=== PATIENT | female | born 1955 | race Caucasian/White ===

== ENCOUNTER → 2016-10-30 | Outpatient (CLI) | payer BC ==
[~2016-10-30] MED LIST: LORA10CA2 PO; OMEP10CA2 PO; TAMO20TA47 PO; VITAMIN PO
--- NOTE | 2016-10-30 13:45 | MAMMOGRAPHY REPORT ---
BILATERAL DIGITAL DIAGNOSTIC MAMMOGRAM TOMOSYNTHESIS WITH CAD: 10/30/2016 CLINICAL HISTORY: History of left breast cancer status post lumpectomy and radiation therapy, who pr esents for her first follow-up after treatment. She reports no current complaints. TECHNIQUE: Breast tomosynthesis in addition to standard 2D mammography was performed. Current study was also evaluated with a Computer Aided Detection (CAD) system. Bilateral CC and MLO 2-D and esteban synthesis images and spot magnification left CC and ML views were obtained. COMPARISON: Comparison is made to exams dated: 03/06/2016 mammogram, 03/06/2016 ultrasound biopsy, mammogram, and 12/31/2015 mammogram - [facility]. BREAST COMPOSITION: The tissue of both breasts is heterogeneously dense, which may obscure small ma sses. FINDINGS: There are new expected postsurgical changes in the left medial breast at approximately 9: 00 from prior lumpectomy, including new density, architectural distortion, and surgical clips at the lumpectomy bed. Minimal diffuse left breast skin thickening is noted, likely a sequela of radiatio n therapy. Spot magnification views of the lumpectomy bed demonstrate no suspicious masses or clust ers of microcalcifications. The remainder of both breasts are stable compared to prior exams, without suspicious masses, calcifi cations, or areas of architectural distortion noted. IMPRESSION: ACR-BI-RADS CATEGORY 3: PROBABLY BENIGN Expected post treatment changes in the left breast, without mammographic evidence of malignancy in e ither breast. Recommend follow-up diagnostic tomosynthesis mammograms of the left breast in 6 month s to reevaluate the left breast postsurgical changes. The patient has been verbally notified of the results. Approximately 10% of breast cancers are not detected with mammography. A negative mammographic repor t should not delay biopsy if a clinically suggestive mass is present. Tracy Payton M.D. ah/:10/30/2016 10:20:02 Pyrotechnic Mixer: Elinor IRIZARRY(Mei)(M), [facility] letter sent: Personal History 3 BI-RADS Code: ACR-BI-RADS Category 3: Probably Benign
== END | disposition home or self-care (01) ==
LOC: C.MAMM 09:38
PROVIDERS: ATTEND Surgery
DX: Z98.890 Other specified postprocedural states (principal); Z85.3 Personal history of malignant neoplasm of breast; Z08 Encounter for follow-up examination after completed treatment for malignant neoplasm; Z92.3 Personal history of irradiation

== ENCOUNTER → 2016-11-24 | Outpatient (CLI) | payer BC | END | disposition home or self-care (01) | LOC: C.MAMM 12:29 | PROVIDERS: ATTEND Family Medicine | DX: M85.88 Other specified disorders of bone density and structure, other site (principal); M81.0 Age-related osteoporosis without current pathological fracture ==

== ENCOUNTER → 2017-02-06 | Outpatient (CLI) | payer BC ==
[~2017-02-06] MED LIST changes: -TAMO20TA47 PO; +TAMO20TA9 PO
== END ==
LOC: C.PAPS 14:36
PROVIDERS: ATTEND Obstetrics & Gynecology
DX: Z01.419 Encounter for gynecological examination (general) (routine) without abnormal findings (principal); N81.11 Cystocele, midline

== ENCOUNTER → 2017-03-10 | Outpatient (CLI) | payer BC ==
[~2017-03-10] MED LIST changes: +TAMO20TA47 PO; -TAMO20TA9 PO
[2017-03-10 13:36] VITALS: BP 134/79; PULSE 70; TEMP 37; O2SAT 96
--- NOTE | 2017-03-10 16:30 | Radiation Oncology Follow-Up ---
Radiation Oncology Follow-Up Date of Visit Mar 10, 2017. Reason For Visit 6 month follow-up Radiation Completion Date finished 07-07-2016 Diagnosis (1) Breast cancer Status: Resolved Onset Date: 03/06/2016 Histology Subtype: ductal Stage: ll (B) Permanent Comment: Self detected left breast mass Status post ultrasound-guided biopsy 03/06/2016 revealing infiltrating ductal carcinoma Estrogen receptor positive, progesterone receptor positive, HER-2/marisela negative Status post lumpectomy and sentinel lymph node biopsy 03/27/2016 Stage pT3 pN0 M0 Reexcision 04/25/2016 Reexcision 05/15/2016 Status post completion of radiation therapy 07/07/2016 received 5130 cGy utilizing hypo-fractionation. Last Edited By: Sybil Al on Jul 17, 2016 10:54 History of Present Illness Ms. Orellana is a 61-year-old female who underwent bilateral digital screening mammogram on 12/28/2014. These were compared to prior studies the most recent dating from 12/26/2013. There was no mammographic evidence of malignancy and a one-year screening mammogram was recommended. On 12/31/2015 patient underwent repeat bilateral digital screening mammogram. This showed no mammographic evidence of malignancy and a one-year repeat screening mammogram was recommended. However shortly after this mammogram in February patient self detected a palpable firm area in the left breast present for a few weeks. A unilateral left digital diagnostic mammogram and targeted left breast ultrasound was performed. This showed subtle architectural distortion seen on the Wisam synthesis fuse only without a discrete mass seen. The remainder of the left breast was stable. Targeted ultrasound in the area of the palpable lump was located in the left breast at the 11 o'clock position 3 cm from the nipple. At that site there was an ill-defined focal hypoechoic region with shadowing with the area difficult to measure due to its ill-defined nature but was thought to measure 1.7 x 1.0 x 1.4 cm that was felt to correspond to the areas of distortion seen on mammogram. An ultrasound-guided core needle biopsy was recommended. On 03/06/2016 patient underwent an ultrasound-guided left breast biopsy. This revealed infiltrating ductal carcinoma NOS [place] grade 5 of 9. No lymphovascular space invasion was identified and no perineural invasion was identified. Tumor cells were positive for estrogen receptors (100%, strong). Tumor cells were positive for progesterone receptor (10%, strong). Tumor cells were equivocal for HER-2/marisela overexpression (2+). The cells were negative for HER-2/marisela oncogene amplification by FISH analysis. Ki-67 was less than 5% of cells positive. Case: [id number]. Patient was seen by Dr. Au. He discussed treatment options with the patient and proceeded with a breast conserving procedure. On 03/28/2016 he performed a left breast partial mastectomy and sentinel node biopsy. The sentinel node revealed no tumor seen. The left breast tissue revealed an infiltrating ductal adenocarcinoma that appeared to extend to the black inked deep margins of the specimen and to the yellow inked inferior margin of the specimen. The infiltrative ductal adenocarcinoma was present 1 mm from the blue inked superior margin of the specimen. Additional superior margin was taken. A 0.4 cm focus of infiltrative ductal carcinoma was seen in the en face section. Additional left inferior margin was taken. Two 0.2 cm in greatest dimension foci of infiltrative ductal adenocarcinoma was seen in the en face sections. Additional tissue from "stitch on the lateral margin" revealed infiltrative ductal adenocarcinoma. Overall the tumor exceeded 3 cm in greatest dimension. The tumor was difficult to define and did seem to extend to the deep margin. It is possible that the size may be up to 5 cm in size. No lymphovascular or perineural invasion was identified. The AJCC pathologic stage was pT3 pN0(sn-), ER positive, SD positive HER-2/marisela negative. Case: [id number]. Dr. Au took the patient back for a reexcision of the inferior, superior and deep superior margins. The inferior margin showed a 0.2 cm focus of invasive ductal carcinoma present at the en face section of the margin. The superior margin was negative for in situ and invasive carcinoma. The left deeper superior margin was negative for in situ and invasive carcinoma. Case: [id number]. Given her persistent left inferior margin Dr. Au has scheduled the patient for a reexcision of this margin on 05/16/2016. We were asked to see the patient in referral for evaluation and discussion of the role of adjuvant radiation with final recommendations pending the final reexcision margins. It is for this reason the patient is seen in referral. She underwent a CT simulation and was found to be a candidate for hypo- fractionated therapy. Completed treatment 07/07/2016 and received 5130 cGy Interim History She been doing well over the past 6 months. She denies any changes to her breast. She has noted no masses or tenderness. She states on self-examination the left axilla appears to be more outward than the right. There is no pain associated. She has noticed no swelling of her arm. She is up-to-date on mammography. Previously she had mild skin dryness and irritation at the nipple. This resolved without difficulty. She had a mammogram 10/30/2016. This showed expected posttreatment changes in the left breast, without mammographic evidence of malignancy in either breast. Recommend follow-up diagnostic tomosynthesis mammograms of the left breast in 6 months to reevaluate the left breast postsurgical changes. Allergies Coded Allergies: No Known Allergies (Unverified , 03/24/14) Home Medications Scheduled Tamoxifen (Nolvadex), 20 MG PO DAILY [vitamin supp pk], 2 PKT PO DAILY Review of Systems Gastrointestinal: Symptoms: Constipation GI Comments: has a external hemorrhoid and constipation at times Oral: Symptoms: No Problems Respiratory: Symptoms: WNL Urinary: Symptoms: Nocturia Comments: occ nocturia Skin: Symptoms: No Problems Breast: Right Upper Arm Measurement: 28.5 Right Mid Arm Measurement: 24.5 Right Wrist Measurement: 16.3 Left Upper Arm Measurement: 27.5 Left Mid Arm Measurement: 23.4 Left Wrist Measurement: 16.0 Arm Dominence: Right Patient Cosmetic Evaluation: Good Staff Cosmetic Evalaluation: Good Physical Exam Vital Signs Date Time Temp Pulse Resp B/P (MAP) Pulse Ox O2 Delivery O2 Flow Rate FiO2 03/10/17 13:36 37.0 70 16 134/79 96 Pain: Side: Bilateral Patient Pain Scale: 0 - 10 Initial Pain Intensity: 0.0 Fatigue: None General Appearance: no apparent distress Eyes: normal inspection, EOMI ENT: normal ENT inspection, hearing grossly normal Neck: no adenopathy, thyroid normal Respiratory/Chest: lungs clear, no respiratory distress, no accessory muscle use Breast: Breast examination reveals well-healed incisions of the left breast. There are no masses or tenderness and no axillary adenopathy. We reviewed the appearance of the axilla. There are no masses. There is no tenderness. Using the Calhoun score cosmesis she has a excellent outcome. The right breast showed no masses or tenderness no axillary adenopathy. Cardiovascular: regular rate, rhythm, no gallop, no murmur Abdomen: non tender, soft Extremities: no pedal edema Neurologic/Psychiatric: no motor/sensory deficits, alert, normal mood/affect Skin: warm/dry Additional Studies Patient: GIORGI ORELLANA [facility] Rec: [id number] Address1: [address] [place] [address] Address2: Acct ID: [id number] Date: 1955 Sex: F Ref Phy: Aylin Mora M.D. Att Phy: Baljeet Au M.D. Tonya Phy: Brian Bhardwaj M.D. Inter Phy: Tracy Payton MD [facility] Zip: [place] [address] SC: [facility] Report #: [id number] Photographer Portrait: SUNDAY Diagnosis: S/P LEFT PARTIAL MASTECTOMY Service Date: 10/30/16 MNE: [id number] Ordering Dr: Baljeet Au M.D. CC: Baljeet Au M.D. CONF: DICTATED BY: Tracy Payton MD MAMMOGRAPHY REPORT BILATERAL DIGITAL DIAGNOSTIC MAMMOGRAM TOMOSYNTHESIS WITH CAD: 10/30/2016 CLINICAL HISTORY: History of left breast cancer status post lumpectomy and radiation therapy, who presents for her first follow-up after treatment. She reports no current complaints. TECHNIQUE: Breast tomosynthesis in addition to standard 2D mammography was performed. Current study was also evaluated with a Computer Aided Detection (CAD ) system. Bilateral CC and MLO 2-D and tomosynthesis images and spot magnification left CC and ML views were obtained. COMPARISON: Comparison is made to exams dated: 03/06/2016 mammogram, 03/06/2016 ultrasound biopsy, 03/05/2016 mammogram, and 12/31/2015 mammogram - [facility]. BREAST COMPOSITION: The tissue of both breasts is heterogeneously dense, which may obscure small masses. FINDINGS: There are new expected postsurgical changes in the left medial breast at approximately 9:00 from prior lumpectomy, including new density, architectural distortion, and surgical clips at the lumpectomy bed. Minimal diffuse left breast skin thickening is noted, likely a sequela of radiation therapy. Spot magnification views of the lumpectomy bed demonstrate no suspicious masses or clusters of microcalcifications. The remainder of both breasts are stable compared to prior exams, without suspicious masses, calcifications, or areas of architectural distortion noted. IMPRESSION: ACR-BI-RADS CATEGORY 3: PROBABLY BENIGN Expected post treatment changes in the left breast, without mammographic evidence of malignancy in either breast. Recommend follow-up diagnostic tomosynthesis mammograms of the left breast in 6 months to reevaluate the left breast postsurgical changes. The patient has been verbally notified of the results. Approximately 10% of breast cancers are not detected with mammography. A negative mammographic report should not delay biopsy if a clinically suggestive mass is present. Tracy Payton M.D. ah/:10/30/2016 10:20:02 Laboratory Clerk: Elinor BELTRE)(Eulalio), [facility] letter sent: Personal History 3 BI-RADS Code: ACR-BI-RADS Category 3: Probably Benign Dictated by: Tracy Payton MD Signed by: Tracy Payton MD Assessment & Plan Plan: Continue scheduled mammography. Continue regular follow-up with Dr. Au at her primary care physician. She has upcoming appointment with Dr. Au. We asked her return to our office in 1 year. She may call if she has any questions or concerns in the interim. Total Time In Follow-Up I spent 20 minutes speaking to the patient performing examination. I spent 15 minutes reviewing information and completing this note. Copy To Baljeet Au M.D.; Brian Bhardwaj M.D. Problem Qualifiers (1) Breast cancer: Breast location: upper inner quadrant of breast Estrogen receptor status: positive Patient sex: female Laterality: left Qualified Codes: C50.212 - Malignant neoplasm of upper-inner quadrant of left female breast; Z17.0 - Estrogen receptor positive status [ER+]
== END | disposition home or self-care (01) ==
LOC: C.ONC 13:31
PROVIDERS: ATTEND Physician Assistant Medical
DX: Z08 Encounter for follow-up examination after completed treatment for malignant neoplasm (principal); Z92.3 Personal history of irradiation; Z85.3 Personal history of malignant neoplasm of breast

== ENCOUNTER → 2017-04-30 | Outpatient (CLI) | payer BC ==
[~2017-04-30] MED LIST changes: -LORA10CA2 PO; -OMEP10CA2 PO
--- NOTE | 2017-04-30 14:07 | MAMMOGRAPHY REPORT ---
UNILATERAL LEFT DIGITAL DIAGNOSTIC MAMMOGRAM TOMOSYNTHESIS WITH CAD: 04/30/2017 CLINICAL HISTORY: History of left breast cancer status post lumpectomy and radiation therapy, who pre sents for her second follow-up after treatment. The patient reports no current complaints. TECHNIQUE: Breast tomosynthesis in addition to standard 2D mammography was performed. Current study was also evaluated with a Computer Aided Detection (CAD) system. Bilateral CC and MLO 2-D and tomosy nthesis images and spot magnification left CC and ML views were obtained. COMPARISON: Comparison is made to exams dated: 10/30/2016 mammogram, 03/06/2016 mammogram, 03/05/2016 m ammogram, 12/31/2015 mammogram, 12/28/2014 mammogram, and 12/26/2013 mammogram - [facility] enter. BREAST COMPOSITION: The tissue of the left breast is heterogeneously dense, which may obscure small masses. FINDINGS: There are stable post surgical changes in the left medial breast from prior lumpectomy, inc luding stable density, architectural distortion, and surgical clips at the lumpectomy bed. A linear scar marker denotes a scar on the left medial breast. Mild diffuse left breast skin thickening, like ly due to radiation therapy, is slightly decreased. The remainder of the left breast is stable compar ed to prior exams, without suspicious masses, calcifications, or areas of architectural distortion no jeet. Scattered benign-appearing calcifications are stable. IMPRESSION: ACR-BI-RADS CATEGORY 3: PROBABLY BENIGN Stable postsurgical changes in the left breast, without mammographic evidence of malignancy in the le ft breast. Recommend bilateral diagnostic tomosynthesis mammograms in 6 months, to reevaluate the le ft breast posttreatment changes and for routine mammography of the right breast. The patient has been verbally notified of the results. Approximately 10% of breast cancers are not detected with mammography. A negative mammographic report should not delay biopsy if a clinically suggestive mass is present. Tracy Payton M.D. /:04/30/2017 11:17:58 Speech Language Pathology Assistant: Sherry BELTRE)(Eulalio), [facility] letter sent: Personal History 3 BI-RADS Code: ACR-BI-RADS Category 3: Probably Benign
== END | disposition home or self-care (01) ==
LOC: C.MAMM 10:46
PROVIDERS: ATTEND Surgery
DX: Z08 Encounter for follow-up examination after completed treatment for malignant neoplasm (principal); Z85.3 Personal history of malignant neoplasm of breast; Z92.3 Personal history of irradiation

== ENCOUNTER 2017-10-31 16:52 | Emergency (ER) | payer BC, OTHER ==
[~2017-10-31] VITALS: Ht 162.6 cm; Wt 72.0 kg
[~2017-10-31 16:52] MED LIST changes: -TAMO20TA47 PO; +TAMO20TA9 PO
[2017-10-31 16:54] VITALS: TEMP 36.6; Ht 162.6 cm; Wt 72.0 kg
[2017-10-31 17:30] VITALS: O2SAT 96
[2017-10-31 17:53] LABS: BASO % 0.5 %; BASO ABS # 0.03 K/uL (0-0.2); EOS % 0.3 %; EOS ABS # 0.02 K/uL (0-0.5); HEMATOCRIT 42.6 % (37-47); HEMOGLOBIN 14.5 g/dL (12.0-16.0); IG# 0.01 K/uL (0.00-0.02); LYMPH % 25.7 %; LYMPH ABS # 1.56 K/uL (1.2-3.4); MEAN CELL VOLUME 88.6 fL (80-100); MEAN CORPUSCULAR HEMOGLOBIN 30.1 pg (25-34); MONO % 9.1 %; MONO ABS # 0.55 K/uL (0.11-0.59); NEUT % 64.2 %; PLATELET COUNT 201 K/uL (130-400); RED CELL DISTRIBUTION WIDTH CV 12.2 % (11.5-14.5); RED CELL DISTRIBUTION WIDTH SD 39.4 fL (36.4-46.3); WHITE BLOOD COUNT 6.07 K/uL (4.8-10.8)
[2017-10-31 18:03] LABS: PTT PATIENT 23.9 SECONDS (21.0-31.0)
[2017-10-31 18:10] LABS: ALBUMIN 3.8 gm/dl (3.4-5.0); ALT/SGPT 26 U/L (12-78); BLOOD UREA NITROGEN 10 mg/dl (7-18); CALCIUM 8.7 mg/dl (8.5-10.1); CARBON DIOXIDE 26 mmol/L (21-32); GLUCOSE 99 mg/dl (70-99); LIPASE 208 U/L (73-393); POTASSIUM 3.6 mmol/L (3.5-5.1); SODIUM 141 mmol/L (136-145)
[2017-10-31 18:15] LABS: ALKALINE PHOSPHATASE 50 U/L (45-117); AST/SGOT 18 U/L (15-37); TOTAL PROTEIN 7.4 gm/dl (6.4-8.2)
[2017-10-31] MEDS ORDERED: SODIUM CHLORIDE 0.9% 500ML 500 ML IV STA (18:16)
--- NOTE | 2017-10-31 18:28 | EMERGENCY ROOM VISIT NOTE ---
ED Visit Note First contact with patient: 17:04 CHIEF COMPLAINT: Fatigue, diaphoresis, chest pain and shortness of breath HISTORY OF PRESENTING ILLNESS: This is a 62-year-old female who presents to the emergency department with complaint of chest pain, increased fatigue and diaphoresis, as well as some mild shortness of breath started 2 days ago. She states that she stubbed her right fifth toe 2 days ago and had a evaluated at [facility] where they told her it was broken, she saw [facility] that same day and was told to wear a fracture shoe and use crutches. She states since using the crutches, she has been feeling very fatigued, she gets winded after short period of ambulating with crutches, and has been noticing some chest tightness in the middle of her chest since yesterday. She states the chest tightness has been constant since yesterday morning, does not radiate , worse with movement, better with rest, 2/10. She has not taken any medications for her pain. She states that she has been sore in her chest, rib cage, abdomen, arms and back since using the crutches. She also states that she gets very sweaty while she is exerting herself and feels extremely fatigued. His past medical history of breast cancer, with partial mastectomy and removal of lymph node, completed radiation treatment and is currently on treatment with tamoxifen REVIEW OF SYSTEMS: A complete 10 point review of systems was reviewed with the patient with pertinent positives and negatives as per history of present illness. All else were negative. PAST MEDICAL HISTORY: Left breast cancer, partial mastectomy, lymph node removal SOCIAL HISTORY: Lives at home with family. Denies tobacco, alcohol, recreational drug use. ALLERGIES: No known allergies. PHYSICAL EXAM: CONSTITUTIONAL: Pleasant and cooperative. No acute distress. Well appearing and well nourished. HEENT: Normocephalic, atraumatic. Pupils equal, round and reactive to light, EOMI. TMs normal. Pharynx normal. Moist mucous membranes. NECK: Supple, full active range of motion without discomfort. RESPIRATORY: Clear to auscultation bilaterally with no wheezing, crackles, rhonchi or stridor. Equal expansion bilaterally. CARDIOVASCULAR: Regular rate and rhythm with no murmurs, rubs or gallops. Normal peripheral perfusion. No edema. CHEST WALL: Tenderness to palpation of the anterior chest wall as well as with compression of the bilateral ribcages, reproduces complaint. No crepitus, no ecchymosis or abrasions. GASTROINTESTINAL: Soft, nontender, nondistended. No palpable masses or HSM. Bowel sounds present in all quadrants. MUSCULOSKELETAL: Full range of motion of all joints without discomfort. No calf swelling or tenderness to palpation. INTEGUMENTARY: No rash or other significant dermatologic conditions noted. NEUROLOGIC: Alert and oriented X 4 with normal affect. Cranial nerves II-XII grossly intact. No focal neurologic deficits noted. Normal strength and sensation in all 4 extremities. Normal speech. Normal gait observed. ED COURSE AND MEDICAL DECISION MAKING: CC: Patient presenting with complaint of chest pain, shortness of breath, fatigue DIFFERENTIAL DIAGNOSIS: Includes, but not limited to ACS, PE, pneumonia, musculoskeletal pain, costochondritis, dehydration, anemia, electrolyte abnormality, among others. INTERPRETATION OF LABS: No leukocytosis, no anemia, no significant electrolyte abnormalities, normal renal function, normal liver enzymes and lipase. Negative troponin. Coagulation factors within normal limits. IMAGING: CHEST 2 VIEWS ROUTINE CLINICAL HISTORY: CHEST PAIN COMPARISON STUDY: Chest radiograph December 06, 2010. FINDINGS: Lung volumes are normal. Lungs are clear. No pneumothorax or pleural effusion is noted. Cardiomediastinal silhouette is unremarkable. Pulmonary vascularity is normal. IMPRESSION: No acute cardiopulmonary findings. ----- CT ANGIOGRAPHY OF THE CHEST, PULMONARY EMBOLUS PROTOCOL CLINICAL HISTORY: Chest pain. Weakness. COMPARISON STUDY: Chest radiograph December 06, 2010. TECHNIQUE: Following IV administration of 110 mL of Optiray-320, helical axial images of the chest were obtained utilizing the pulmonary embolus protocol. Maximal intensity projections and sagittal and coronal reformats were viewed on an independent 3D workstation. IV contrast was administered without complication. A dose lowering technique was utilized adhering to the principles of ALARA. CT DOSE: 216.53 mGy.cm FINDINGS: No pulmonary emboli are identified. There is no evidence of thoracic aortic dissection. The heart is mildly enlarged. There is no pericardial effusion. No enlarged axillary, mediastinal or hilar lymph nodes are present. There are postoperative findings within the left breast. There is no consolidation to suggest pneumonia. No pneumothorax or pleural effusion is noted. No suspicious osseous lesions are noted. Upper abdomen is unremarkable with exception of a few suspected left hepatic lobe cyst. IMPRESSION: 1. No pulmonary emboli identified. 2. No acute intrathoracic findings. EKG: Shows normal sinus rhythm with a rate of 72 beats per minutes with nonspecific ST/T-wave abnormalities in the inferior leads, appears unchanged from previous EKG from 03/16/2014 by my interpretation. MEDICATION RECONCILIATION: I attest that I have personally reviewed the patient 's current medication list. INITIAL VITAL SIGNS REVIEW: I reviewed the patient's initial vital signs and interpret them as follows: T: Afebrile; BP: Hypertensive; HR: Within normal limits; RR: Within normal limits; Pulse Ox: Within normal limits on room air. Blood pressure screening: The patient was found to have an elevated blood pressure, which was felt to be situational. SUMMARY: Patient was evaluated at bedside, history and physical exam performed. Patient is alert and oriented, no acute distress, resting, in the stretcher. Lungs are clear to auscultation, no wheezes or rhonchi heard. Normal heart sounds. No calf swelling or tenderness. Patient complains of some chest tightness in the center of her chest, this is reproducible with palpation. EKG reviewed at bedside, shows normal sinus rhythm and no acute ischemic changes. Given patient's history of a recent injury with fracture to her lower extremity , active breast cancer on tamoxifen, and complaints of chest pain and shortness of breath, I feel it is necessary to rule out a PE at this time. Orders were placed at bedside for labs, UA, IV fluids for renal protection, CTA of the chest to evaluate for PE. Patient discussed with Dr. Heart, who agrees with my assessment and plan. Labs and imaging reviewed as above, unremarkable with no acute findings, specifically no evidence of PE or ACS. Given persistent chest pain for greater than 24 hours with a normal EKG and negative troponin, I feel ACS is unlikely. Patient reassessed multiple times throughout ED stay, she states that she is feeling improved and denies any complaints currently. I feel that the patient's pain may be musculoskeletal related to use of crutches , the patient was provided with a walker and ambulated in the halls without difficulty, shortness of breath or fatigue, and maintained oxygen levels of 98% on room air. Patient was updated on all results and plan for discharge, she was encouraged to follow closely with her primary care provider if her symptoms do not improve. Patient was also given strict return precautions should her symptoms worsen, she verbalized understanding. Patient was discharged home in stable condition and ambulatory. Problem List Medical Problems: (1) Breast cancer Permanent Comment: Self detected left breast mass Status post ultrasound-guided biopsy 03/06/2016 revealing infiltrating ductal carcinoma Estrogen receptor positive, progesterone receptor positive, HER-2/marisela negative Status post lumpectomy and sentinel lymph node biopsy 03/27/2016 Stage pT3 pN0 M0 Reexcision 04/25/2016 Reexcision 05/15/2016 Status post completion of radiation therapy 07/07/2016 received 5130 cGy utilizing hypo-fractionation. Status: Resolved Current/Historical Medications Scheduled Naproxen (Naproxen), 1 TAB PO BID Tamoxifen (Nolvadex), 20 MG PO DAILY [vitamin supp pk], 2 PKT PO DAILY Allergies Coded Allergies: No Known Allergies (Unverified , 10/31/17) Vital Signs Date Time Temp Pulse Resp B/P (MAP) Pulse Ox O2 Delivery O2 Flow Rate FiO2 10/31/17 22:50 88 18 126/70 98 10/31/17 21:28 69 10/31/17 21:08 66 18 129/78 99 Room Air 10/31/17 19:25 84 20 155/88 100 Room Air 10/31/17 18:29 75 20 156/85 98 Room Air 10/31/17 17:30 96 Room Air 10/31/17 17:23 75 10/31/17 16:54 36.6 88 17 141/82 98 Room Air Laboratory Results 10/31/17 17:40 Red Blood Count 4.81, Mean Corpuscular Volume 88.6, Mean Corpuscular Hemoglobin 30.1, Mean Corpuscular Hemoglobin Concent 34.0, Mean Platelet Volume 10.0, Neutrophils (%) (Auto) 64.2, Lymphocytes (%) (Auto) 25.7, Monocytes (%) (Auto) 9.1, Eosinophils (%) (Auto) 0.3, Basophils (%) (Auto) 0.5, Neutrophils # (Auto) 3.90, Lymphocytes # (Auto) 1.56, Monocytes # (Auto) 0.55, Eosinophils # (Auto) 0.02, Basophils # (Auto) 0.03 10/31/17 17:40 Test 10/31/17 17:40 White Blood Count 6.07 K/uL (4.8-10.8) Red Blood Count 4.81 M/uL (4.2-5.4) Hemoglobin 14.5 g/dL (12.0-16.0) Hematocrit 42.6 % (37-47) Mean Corpuscular Volume 88.6 fL (80-100) Mean Corpuscular Hemoglobin 30.1 pg (25-34) Mean Corpuscular Hemoglobin Concent 34.0 g/dl (32-36) Platelet Count 201 K/uL (130-400) Mean Platelet Volume 10.0 fL (7.4-10.4) Neutrophils (%) (Auto) 64.2 % Lymphocytes (%) (Auto) 25.7 % Monocytes (%) (Auto) 9.1 % Eosinophils (%) (Auto) 0.3 % Basophils (%) (Auto) 0.5 % Neutrophils # (Auto) 3.90 K/uL (1.4-6.5) Lymphocytes # (Auto) 1.56 K/uL (1.2-3.4) Monocytes # (Auto) 0.55 K/uL (0.11-0.59) Eosinophils # (Auto) 0.02 K/uL (0-0.5) Basophils # (Auto) 0.03 K/uL (0-0.2) RDW Standard Deviation 39.4 fL (36.4-46.3) RDW Coefficient of Variation 12.2 % (11.5-14.5) Immature Granulocyte % (Auto) 0.2 % Immature Granulocyte # (Auto) 0.01 K/uL (0.00-0.02) Prothrombin Time 10.0 SECONDS (9.0-12.0) Prothromb Time International Ratio 1.0 (0.9-1.1) Activated Partial Thromboplast Time 23.9 SECONDS (21.0-31.0) Partial Thromboplastin Ratio 0.9 Anion Gap 9.0 mmol/L (3-11) Est Creatinine Clear Calc Drug Dose 83.2 ml/min Estimated GFR () 109.1 Estimated GFR (Non- 94.2 BUN/Creatinine Ratio 14.4 (10-20) Calcium Level 8.7 mg/dl (8.5-10.1) Total Bilirubin 0.4 mg/dl (0.2-1) Direct Bilirubin 0.1 mg/dl (0-0.2) Aspartate Amino Transf (AST/SGOT) 18 U/L (15-37) Alanine Aminotransferase (ALT/SGPT) 26 U/L (12-78) Alkaline Phosphatase 50 U/L (45-117) Troponin I < 0.015 ng/ml (0-0.045) Total Protein 7.4 gm/dl (6.4-8.2) Albumin 3.8 gm/dl (3.4-5.0) Lipase 208 U/L (73-393) Medications Administered Medications (Trade) Dose Ordered Sig/Roni Route Start Time Stop Time Status Last Admin Dose Admin Sodium Chloride 500 ml @ 999 mls/hr Q31M STAT IV 10/31/17 18:16 10/31/17 18:46 DC 10/31/17 18:28 999 MLS/HR Departure Information Impression Primary Impression: Chest wall pain Additional Impression: Fatigue Dispostion Home / Self-Care Condition GOOD Prescriptions Naproxen (NAPROXEN) 500 Mg Tab 1 TAB PO BID for 14 Days, #28 TAB 1 Refill Prov: Cynthia Peñaloza CRNP 10/31/17 Referrals Brian Bhardwaj M.D. (PCP) Patient Instructions ED Chest Pain Costochondritis, [facility] Additional Instructions You have been treated in the Emergency Department for your chest pain and fatigue. Laboratory results and imaging studies have ruled out any emergent causes for your symptoms which would warrant admission or surgery. You have been prescribed naproxen to be used 1 tablet every 12 hours as needed for pain control. This is an NSAID. Do not take other NSAIDs such as ibuprofen , Advil, Motrin, Aleve, why you are taking this medication. Stop using the crutches and use the walker to ambulate. Continue to stay off of your right foot and keep it elevated as much as possible, as directed by your orthopedic surgeon. Drink plenty of water and stay well hydrated. Please follow-up with your primary care provider in the next few days if your symptoms are not improving. Please return to the emergency department for worsening symptoms, including severe worsening chest pain, shortness of breath, severe dizziness or passing out, persistent nausea/vomiting, vomiting up or coughing up blood, fevers/chills , or any other concerns. Problem Qualifiers Additional Impression: Fatigue Fatigue type: unspecified Qualified Codes: R53.83 - Other fatigue
--- NOTE | 2017-10-31 20:04 | DIAGNOSTIC IMAGING REPORT ---
CT ANGIOGRAPHY OF THE CHEST, PULMONARY EMBOLUS PROTOCOL CLINICAL HISTORY: Chest pain. Weakness. COMPARISON STUDY: Chest radiograph December 06, 2010. TECHNIQUE: Following IV administration of 110 mL of Optiray-320, helical axial images of the chest were obtained utilizing the pulmonary embolus protocol. Maximal intensity projections and sagittal and coronal reformats were viewed on an independent 3D workstation. IV contrast was administered without complication. A dose lowering technique was utilized adhering to the principles of ALARA. CT DOSE: 216.53 mGy.cm FINDINGS: No pulmonary emboli are identified. There is no evidence of thoracic aortic dissection. The heart is mildly enlarged. There is no pericardial effusion. No enlarged axillary, mediastinal or hilar lymph nodes are present. There are postoperative findings within the left breast. There is no consolidation to suggest pneumonia. No pneumothorax or pleural effusion is noted. No suspicious osseous lesions are noted. Upper abdomen is unremarkable with exception of a few suspected left hepatic lobe cyst. IMPRESSION: 1. No pulmonary emboli identified. 2. No acute intrathoracic findings. Electronically signed by: Chip Abraham M.D. 10/31/2017 8:03 PM Dictated Date/Time: 10/31/2017 7:57 PM
--- NOTE | 2017-10-31 20:05 | DIAGNOSTIC IMAGING REPORT ---
CHEST 2 VIEWS ROUTINE CLINICAL HISTORY: CHEST PAIN COMPARISON STUDY: Chest radiograph December 06, 2010. FINDINGS: Lung volumes are normal. Lungs are clear. No pneumothorax or pleural effusion is noted. Cardiomediastinal silhouette is unremarkable. Pulmonary vascularity is normal. IMPRESSION: No acute cardiopulmonary findings. Electronically signed by: Chip Abraham M.D. 10/31/2017 8:03 PM Dictated Date/Time: 10/31/2017 8:03 PM
[2017-10-31] MEDS ORDERED: NAPR500T3 PO (22:26)
[2017-10-31 22:50] VITALS: BP 126/70; PULSE 88; O2SAT 98
== END 2017-10-31 22:50 | disposition home or self-care (01) ==
LOC: C.EDB 16:53 → C.EDC 22:50
DX: R07.89 Other chest pain (principal); R53.83 Other fatigue; Z85.3 Personal history of malignant neoplasm of breast; Z79.899 Other long term (current) drug therapy

== ENCOUNTER → 2017-11-03 | Outpatient (CLI) | payer OTHER ==
[~2017-11-03] MED LIST changes: +NAPR500T3 PO
--- NOTE | 2017-11-03 15:24 | MAMMOGRAPHY REPORT ---
BILATERAL DIGITAL DIAGNOSTIC MAMMOGRAM TOMOSYNTHESIS WITH CAD: 11/03/2017 CLINICAL HISTORY: 62-year-old woman with a personal history of left breast cancer status post breast conservation treatment presents for a close follow-up in the left breast and also due for annual righ t mammography. TECHNIQUE: Bilateral breast tomosynthesis in addition to standard 2D mammography was performed. Spot magnification left CC and ML views were also performed over the lumpectomy bed. Current study was a lso evaluated with a Computer Aided Detection (CAD) system. COMPARISON: Comparison is made to exams dated: 04/30/2017 mammogram, 10/30/2016 mammogram, 03/06/2016 m ammogram, 03/06/2016 ultrasound biopsy, 03/05/2016 ultrasound, and 03/05/2016 mammogram - [facility]. BREAST COMPOSITION: There are scattered areas of fibroglandular density in both breasts. FINDINGS: There is a linear scar marker overlying the superior left breast. There is skin irregulari ty and expected architectural distortion and surgical clips in the 9:00 to 10:00 left breast, at the site of prior lumpectomy. There is no evidence of a new suspicious mass, asymmetry, unexpected archi tectural distortion or new calcifications bilaterally. Another close follow-up diagnostic evaluation of the left breast is recommended in 6 months, to ensure at least 2 years of stability after treatme nt. Should also perform right mammography given that that was previously the patient's annual time. IMPRESSION: ACR-BI-RADS CATEGORY 3: PROBABLY BENIGN Stable bilateral mammograms, including expected posttreatment changes in the left breast, without def inite mammographic evidence of malignancy. Follow-up bilateral diagnostic mammography is recommended in 6 months, to ensure at least 2 years of stability after treatment. These results and recommendations were discussed with the patient at the time of the exam. Approximately 10% of breast cancers are not detected with mammography. A negative mammographic report should not delay biopsy if a clinically suggestive mass is present. Radha Barry M.D. ay/:11/03/2017 12:12:54 Filters Assembler: Madhavi BELTRE)(Eulalio), [facility] letter sent: Follow Up Recommended 3 BI-RADS Code: ACR-BI-RADS Category 3: Probably Benign
== END | disposition home or self-care (01) ==
LOC: C.MAMM 10:54
PROVIDERS: ATTEND Physician Assistant Medical
DX: Z85.3 Personal history of malignant neoplasm of breast (principal); Z08 Encounter for follow-up examination after completed treatment for malignant neoplasm

== ENCOUNTER → 2017-11-27 | Outpatient (CLI) | payer OTHER ==
[~2017-11-27] MED LIST changes: +NAPR-1231 PO; -NAPR500T3 PO
== END | disposition home or self-care (01) ==
LOC: C.LABSPEC 17:34
PROVIDERS: ATTEND Physician Assistant
DX: N94.9 Unspecified condition associated with female genital organs and menstrual cycle (principal); R39.9 Unspecified symptoms and signs involving the genitourinary system

== ENCOUNTER 2017-12-10 22:00 | Emergency (ER) | payer OTHER ==
[~2017-12-10] VITALS: Ht 162.6 cm; Wt 73.8 kg
[2017-12-10 22:04] VITALS: TEMP 36.9; Ht 162.6 cm; Wt 73.8 kg
[2017-12-10] MEDS ORDERED: ALUMINUM/MAGNESIUM SUSP 30 ML UDC PO STA (23:04)
[2017-12-10] MEDS ORDERED: LIDOCAINE HCL 2% VISC SOLN 20 ML UDC PO STA (23:04)
[2017-12-11] MEDS ORDERED: PANTOprazole SOD 40 MG TAB PO STA (00:04)
[2017-12-11] MEDS ORDERED: PANT40TA PO (00:06)
[2017-12-11 00:32] VITALS: BP 128/81; PULSE 76; O2SAT 98
--- NOTE | 2017-12-11 04:44 | EMERGENCY ROOM VISIT NOTE ---
History First contact with patient: 22:42 Chief Complaint: OTHER COMPLAINT Stated Complaint: SWALLOWED TOO MANY VITAMIN PILLS AND STUCK, NAUSIA History of Present Illness The patient is a 62 year old female who presents to the Emergency Room with complaints of feeling like pills are stuck in her throat who took 10 vitamins at once at 6:30 PM. Patient then drank water and has had toast and several other glasses of water since then. Patient states she does not normally take this many vitamins at once. She has had this problem before. No endoscopy in the past. Patient denies chest pain, dyspnea, difficulty swallowing, vomiting, breathing problems. Review of Systems An 10 system review of systems was completed with positives and pertinent negatives listed in the HPI. Past Medical/Surgical History Medical Problems: (1) Breast cancer GERD, hypertension Social History Smoking Status: Never Smoker Alcohol Use: occasionally Drug Use: none Marital Status: Occupation Status: employed, other Current/Historical Medications Scheduled Pantoprazole (Protonix), 40 MG PO DAILY Tamoxifen (Nolvadex), 20 MG PO DAILY [vitamin supp pk], 2 PKT PO DAILY Physical Exam Vital Signs Date Time Temp Pulse Resp B/P (MAP) Pulse Ox O2 Delivery O2 Flow Rate FiO2 12/11/17 00:32 76 20 128/81 98 12/10/17 22:04 36.9 94 18 153/92 100 Room Air Physical Exam VITALS: Vitals are noted on the nurse's note and reviewed by myself. Vital signs stable. GENERAL: Pleasant female, in no acute distress, nondiaphoretic, well-developed well-nourished. SKIN: Capillary reflex less than 2 seconds. HEENT: Normocephalic. PERRLA. EOMI. Nares patent. Mucous membranes moist. Airway patent. Neck is supple without nuchal rigidity. HEART: Regular rate and rhythm without murmurs gallops or rubs. LUNGS: Clear to auscultation bilaterally without wheezes, rales or rhonchi. No retractions or accessory muscle use. ABDOMEN: Positive bowel sounds x 4. Normal tympanic percussion. Soft, nontender, without masses or organomegaly. Falk sign negative. No guarding or rebound tenderness. MUSCULOSKELETAL: No gross musculoskeletal defects. NEURO: Patient was alert and oriented to person place and time. Normal sensation to light and sharp touch. No focal neurological deficits. Medical Decision & Procedures Medications Administered Medications (Trade) Dose Ordered Sig/Roni Route Start Time Stop Time Status Last Admin Dose Admin Lidocaine HCl (Viscous Lidocaine 2% Soln) 10 ml NOW STAT PO 12/10/17 23:04 12/10/17 23:05 DC 12/10/17 23:04 10 ML Al Hydroxide/Mg Hydroxide (Maalox Susp) 30 ml NOW STAT PO 12/10/17 23:04 12/10/17 23:06 DC 12/10/17 23:04 30 ML Pantoprazole Sodium (Protonix Tab) 40 mg NOW STAT PO 12/11/17 00:04 12/11/17 00:05 DC 12/11/17 00:04 40 MG ED Course Prior records reviewed and summarized as above. Triage Nursing notes reviewed. Additional history obtained from family. The patient's history was concerning for throat discomfort after swallowing 10 vitamins Differential diagnosis: Etiologies such as pill induced esophagitis, gastritis, esophageal irritation, obstruction, as well as others were entertained.. Physical examination: The physical examination was consistent with pill esophagitis ER treatment provided: GI cocktail, Protonix On reassessment the patient felt better. Diagnostics interpreted by me: Deferred This appears to be pill induced esophagitis. Patient was strongly encouraged never to take this many vitamins at once. She is advised to take 1 pill standing up with a glass of water. She is advised to follow-up with GI for her recurrent reflux symptoms in the past. Patient was advised to take Protonix daily for the next 2 weeks. She is advised to return to the ER immediately for difficulty swallowing, vomiting, black or blood in her stool, worsening signs or symptoms or as needed. Patient was well-appearing. She was neurovascularly and neurologically intact. She did not have acute abdomen on exam. She was able to swallow without difficulties. By the evaluation outlined above emergent etiologies such as obstruction as well as others were deemed relatively unlikely. The pt informed about the findings as listed above. All questions were answered and pleased with the treatment. Return instructions were outlined and the patient was discharged in stable condition. Outpatient prescription management: Protonix Referral: The patient was referred back to primary care physician for follow-up in 2 to 3 days for a recheck of the current condition. Recommend GI referral. The chart was completed utilizing [employer] voice recognition software. Grammatical errors, random word insertions, pronoun errors, and incomplete sentences are an occassional consequence of this system due to software limitations, ambient noise, and hardware issues. Any formal questions or concerns about the content, text, or information contained within the body of this dictation should be directly addressed to the physician shipping assistant for clarification. Medical Decision As above Medication Reconcilliation Current Medication List: was personally reviewed by me Blood Pressure Screening Patient's blood pressure: Normal blood pressure Impression Primary Impression: Pill esophagitis Departure Information Dispostion Home / Self-Care Condition GOOD Prescriptions Pantoprazole (Protonix) 40 Mg Tab 40 MG PO DAILY for 14 Days, #14 TAB Prov: Nila Mccullough .ODETTE 12/11/17 Referrals Jessica Blackwell M.D. Forms WORK / SCHOOL INSTRUCTIONS, HOME CARE DOCUMENTATION FORM, IMPORTANT VISIT INFORMATION Patient Instructions GERD, [facility] Additional Instructions Take all pills standing up with a full glass of water and one at a time. Protonix 40 m tablet daily for next 2 weeks. Take this on an empty stomach. Try Maalox or Zantac for breakthrough symptoms for reflux. Avoid large meals. Avoid acidic foods. Rest and drink plenty of fluids as tolerated. Continue current medications. Avoid strenuous activities and anything that worsens your pain. Resume normal activities once your symptoms resolve. Return to the ER immediately for worsening or persistent chest pain, abdominal pain, black or blood in your stools, vomiting, fevers, chest pains, difficulty breathing, worsening of your condition, or as needed. Follow up with your primary physician in 2-3 days for a recheck of your current condition.
== END 2017-12-11 00:36 | disposition home or self-care (01) ==
LOC: C.EDB 22:02
DX: K21.0 Gastro-esophageal reflux disease with esophagitis (principal); I10 Essential (primary) hypertension; C50.919 Malignant neoplasm of unspecified site of unspecified female breast

== ENCOUNTER → 2018-01-27 | Outpatient (CLI) | payer OTHER ==
[~2018-01-27] MED LIST changes: -NAPR-1231 PO
== END | disposition home or self-care (01) ==
LOC: C.PAPS 10:48
PROVIDERS: ATTEND Obstetrics & Gynecology
DX: Z01.419 Encounter for gynecological examination (general) (routine) without abnormal findings (principal)